=== PATIENT | female | born 1985 | race African-American/Black ===

== ENCOUNTER 2019-03-26 08:57 | Emergency (ER) | payer OTHER ==
[2019-03-26 09:05] VITALS: BP 133/90; PULSE 108; TEMP 98.4; BMI 24.3
[2019-03-26] MEDS ORDERED: IBUPROFEN 600 MG TABLET (FP) PO ONE ×2 (09:30→09:48)
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
== END 2019-03-26 10:31 | disposition home or self-care (01) ==
LOC: JERFT 08:57
DX: Z04.71 Encounter for examination and observation following alleged adult physical abuse (principal); V87.8XXA Person injured in other specified noncollision transport accidents involving motor vehicle (traffic), initial encounter; Y93.89 Activity, other specified; Y92.410 Unspecified street and highway as the place of occurrence of the external cause
CPT/HCPCS: 73110-TC-RT-FY; 73130-TC-RT-FY; 99281-25